=== PATIENT | male | born 1970 ===

== ENCOUNTER → 2025-02-27 | Outpatient (CLI) | payer SELFPAY ==
[2025-02-27 16:32] LABS: BASOPHILS ABSOLUTE AUTO 0.06 K/mm3 (0.00-0.23); BASOPHILS PERCENT AUTO 1 % (0-2); EOSINOPHILS ABSOLUTE AUTO 0.15 K/mm3 (0.00-0.68); EOSINOPHILS PERCENT AUTO 2 % (0-6); Hematocrit 42.8 % (37.0-53.0); Hemoglobin 14.8 g/dL (13.5-17.5); IMMATURE GRAN ABSOLUTE AUTO 0.08 K/mm3 (0.00-0.10); IMMATURE GRAN PERCENT AUTO 1 % (0-1); LYMPHOCYTES ABSOLUTE AUTO 2.31 K/mm3 (0.84-5.20); LYMPHOCYTES PERCENT AUTO 29 % (21-46); MONOCYTES ABSOLUTE AUTO 0.56 K/mm3 (0.16-1.47); MONOCYTES PERCENT AUTO 7 % (4-13); Mean Corpuscular HGB Conc 34.6 g/dL (31.5-36.5); Mean Corpuscular Volume 87 fL (80-100); NEUTROPHILS ABSOLUTE AUTO 4.90 K/mm3 (1.96-9.15); NEUTROPHILS PERCENT AUTO 61 % (41-73); NRBC ABSOLUTE 0.00 K/mm3 (0.00-0.02); NRBC Auto 0.0 /100 WBC (0.0-0.2); Platelet Count 317 K/mm3 (150-400); RDW Coefficient Variation 12.1 % (11.7-14.2); RDW Standard Deviation 38.7 fL (35.1-46.3)
[2025-02-27 17:04] LABS: Alanine Aminotransfer (ALT/SGP 59 U/L (12-78); Albumin, Blood 4.0 g/dL (3.4-5.0); Albumin/Globulin Ratio 1.3 (0.8-1.8); Anion Gap 8 mmol/L (3-11); Aspartate Aminotrans (AST/SGOT 26 U/L (12-37); Bilirubin, Total 0.7 mg/dL (0.1-1.0); Blood Urea Nitrogen 10 mg/dL (8-24); CHOL/HDL RATIO 4.3; CO2, Blood 29 mmol/L (21-32); Calcium, Blood 8.9 mg/dL (8.5-10.1); Chloride, Blood 103 mmol/L (98-108); Cholesterol 173 mg/dL (50-200); Creatinine, Blood 0.78 mg/dL (0.60-1.20); Globulin, Blood 3.0 g/dL (2.2-4.0); Glucose, Blood 150 mg/dL (70-99); HDL Cholesterol 40 mg/dL (>39); LDL/HDL RATIO 1.8; Low Density Lipoprotein Chol 74 mg/dL (0-110); Potassium, Blood 3.7 mmol/L (3.5-5.5); Sodium, Blood 136 mmol/L (136-145); Thyroid Stimulating Hormone 1.290 uIU/mL (0.360-4.800); Total Protein, Blood 7.0 g/dL (6.4-8.2); Triglycerides 296 mg/dL (30-160); Very Low Density Lipoprot Chol 59 mg/dL (6-32)
== END ==
LOC: LAB 14:22 → LAB SHORT 14:22
PROVIDERS: Student in an Organized Health Care Education/Training Program
DX: R53.82 Chronic fatigue, unspecified (principal); Z13.6 Encounter for screening for cardiovascular disorders; R73.9 Hyperglycemia, unspecified
CPT/HCPCS: 80053; 80061; 83036; 84443; 85025